=== PATIENT | male | born 1945 | race Caucasian/White ===

== ENCOUNTER 2020-12-17 12:13 | Emergency (ER) | payer MEDICARE, OTHER, SELFPAY ==
[2020-12-17] VITALS (24 sets, daily range): BP systolic 140–181; BP diastolic 65–120; PULSE 60–85; RESP 16–48; TEMP 36.6; O2SAT 97–100; BMI 21.2
--- NOTE | 2020-12-17 12:24 | DI.RAD.S_ITS ---
PROCEDURE: XR CHEST 1V INDICATIONS: chest pain TECHNIQUE: One view of the chest was acquired. COMPARISON: None. FINDINGS: Surgical changes and devices: None. Lungs and pleura: Lungs are clear. No pleural effusions or pneumothorax. Mediastinum: Mediastinal contours appear normal. Heart size is normal. Bones and chest wall: No suspicious bony lesions. Overlying soft tissues appear unremarkable. IMPRESSION: Normal for age, source of current chest pain symptoms is not seen. Dictated by: Franco Guzman M.D. on 12/17/2020 at 12:55 Approved by: Franco Guzman M.D. on 12/17/2020 at 12:55
[2020-12-17 13:21] LABS: Add Manual Diff / Slide Review NO; Basophils Absolute Auto 0 /uL (0-100); Basophils Percent Auto 0.3 % (0-2); Eosinophils Absolute Auto 0 /uL (0-450); Eosinophils Percent Auto 0.8 % (2-4); Hematocrit 42.8 % (41-53); Hemoglobin 14.1 g/dL (13.5-17.5); Lymphocytes Absolute Auto 700 /uL (1100-4500); Mean Corpuscular HGB Conc 33.1 % (30-36); Mean Corpuscular Volume 93.9 fL (80-100); Monocytes Absolute Auto 500 /uL (0-900); Monocytes Percent Auto 8.1 % (3-14); Neutrophils Absolute Auto 4500 /uL (1500-7000); Neutrophils Percent Auto 78.8 % (50-75); Platelet Count 183 X10^3/uL (150-400); Red Blood Cell Count 4.56 X10^6/uL (4.5-5.9); Red Cell Distribution Width 13.2 % (11.6-14.8); White Blood Cell Count 5.8 X10^3/uL (4.5-11.0)
[2020-12-17 13:29] LABS: Alanine Aminotransferase 18 IU/L (<50); Albumin 4.3 g/dL (3.5-5.0); Albumin Globulin Ratio 1.4 (1.0-2.8); Alkaline Phosphatase 72 U/L (38-126); Aspartate Aminotransferase 27 IU/L (17-59); BUN Creatinine Ratio 32.8 (6-22); Bilirubin Total 0.8 mg/dL (0.2-1.3); Blood Urea Nitrogen 21 mg/dL (9-20); Calcium 9.2 mg/dL (8.4-10.2); Carbon Dioxide 29 mmol/L (22-32); Chloride 104 mmol/L (98-107); Creatine Kinase 95 U/L (55-170); Estimated Glomerular Filt Rate > 60.0 mL/min (>60); Globulin 3.1 g/dL (1.7-4.1); Glucose 148 mg/dL (80-110); HEMOLYSIS < 15 (0-50); Lipase 206 U/L (23-300); Potassium 4.3 mmol/L (3.4-5.1); Sodium 138 mmol/L (137-145); Total Protein 7.4 g/dL (6.3-8.2)
[2020-12-17 14:10] LABS: Troponin I 0.137 ng/mL (0.01-0.034)
[2020-12-17] MEDS: ASPIRIN 81 MG CHEW TAB 324 MG (14:21)
--- NOTE | 2020-12-17 14:30 | ED.CHESTPAIN ---
HPI - Chest Pain General Chief Complaint: Chest Pain Stated Complaint: possible heart attack Time Seen by Provider: 12/17/20 14:13 Source: patient and family () History of Present Illness HPI narrative: This is a 75-year-old male who comes emergency department with complaint of discomfort in bilateral arms. Patient states this morning about 10:00 a.m. he had some she back and shoulder discomfort which is not unusual but then around 1045 started developed achy discomfort in bilateral lower upper extremities for about an hour and a half which then resolved. He states he feels fine now. He does not think he was diaphoretic but he felt a little warm. He denies any shortness of breath. No syncope. No nausea. No issues with bowel movements or urination. No swelling of extremities. Patient has a history of thyroid disease, GERD and takes simvastatin daily. No history of hypertension or diabetes. He had a disc trimmed on his back in the past but denies any other cardiac history. Or other surgical. No tobacco, 1 glass of wine daily. No illicit. Dr. Guzamn is his primary care. Patient does not have a tester operator helper. Related Data Home Medications Medication Instructions Recorded Confirmed aspirin 81 mg tablet 81 mg PO DAILY 12/17/20 12/17/20 levothyroxine 100 mcg tablet 100 mcg PO DAILY 12/17/20 12/17/20 Previous Rx's Medication Instructions Recorded omeprazole 40 mg capsule,delayed See Rx Instructions .ROUTE 02/26/20 release .COMPLEX #90 capsule simvastatin 20 mg tablet See Rx Instructions .ROUTE 02/26/20 .COMPLEX #90 tablet Allergies Allergy/AdvReac Type Severity Reaction Status Date / Time Penicillins [PENICILLINS] Allergy Unknown parents Verified 02/26/20 09:42 both allergic, has not ever had med Review of Systems Review of Systems ROS Unobtainable: All systems reviewed & are unremarkable except as noted in HPI and below Patient History Medical History Chicken pox (1950) GERD (gastroesophageal reflux disease) Hearing loss (1965) Hyperlipidemia (~2001) Hypothyroidism (2011) Lumbar disc herniation with radiculopathy Spinal injury (1965) Tinnitus Surgical History History of colonoscopy (11/07/09) Status post lumbar microdiscectomy (03/10/17) Family History (Updated 06/06/18 @ 11:46 by Meeta Huynh) Mother Hypertension Osteoporosis Father Melanoma Family/Other No problems noted. Social History Smoking Status: Never smoker Smoking Status: Never smoker Exam Narrative Exam Narrative: GENERAL: Alert and oriented x three, well nourished male in mild distress HEENT: Head normocephalic, atraumatic, EOMI, pupils reactive, face symmetric, moist mucous membranes NECK: Supple, full range of motion CARDIOVASCULAR: Regular rate and rhythm without murmurs, rubs or gallops. RESPIRATORY: Breath sounds equal bilaterally, no wheezes rales or rhonchi. ABDOMEN: Soft, nontender. Normoactive bowel sounds all 4 quadrants. No guarding or rebound, rigidity, no mass : No CVA tenderness EXTREMITIES: Normal range of motion, no clubbing or edema. Neurovascularly intact NEUROLOGICAL: Cranial nerves II through XII grossly intact. Moving all extremities SKIN: Warm, dry, no petechiae, no rashes or lesions. Initial Vital Signs Initial Vital Signs: Vital Signs Temperature 97.8 F 12/17/20 12:22 Pulse Rate 81 12/17/20 12:22 Respiratory Rate 16 12/17/20 12:22 Blood Pressure 180/86 H 12/17/20 12:22 Pulse Oximetry 97 12/17/20 12:22 Course Orders Ordered: ED Orders 12/17/20 12:24 XR chest 1V Stat EKG-12 Lead Stat 12/17/20 12:56 Complete Blood Count AUTO DIFF Stat Comprehensive Metabolic Panel Stat Lipase Stat Troponin & CK Cardiac Panel Stat 12/17/20 15:03 Troponin I Stat 12/17/20 15:14 PT [Prothrombin Time INR] Stat 12/17/20 15:17 Education, smoking cessation ONGOING 12/17/20 16:17 EC echo doppler complete Stat 12/17/20 16:36 COVID19 - ADMIT (ACTING SECTION CHIEF swab/PCR) Stat 12/17/20 22:00 PTT [Partial Thromboplastin Time] Stat Heparin Sodium/Dextrose (Heparin Drip) 25,000 unit in 500 mls @ 18.507 mls/hr IV CONT MARGARET; Protocol Last Admin: 12/17/20 15:44 Dose: 12 units/kg/hr, 18.507 mls/hr Documented by: ALICIA Morphine Sulfate (Morphine 2 Mg/Ml Inj) 2 mg IV Q5MIN PRN PRN Reason: Chest Pain Naloxone HCl (Naloxone 0.4 Mg/Ml Vial) 0.2 mg IV Q2MIN PRN PRN Reason: Opiate Reversal Nitroglycerin (Nitroglycerin 0.4 Mg Sl Tab) 0.4 mg SL [id number] PRN PRN Reason: chest pain Discontinued Medications Atorvastatin Calcium (Atorvastatin 20 Mg Tablet) 80 mg PO NOW ONE Stop: 12/17/20 16:18 Last Admin: 12/17/20 16:56 Dose: 80 mg Documented by: ALICIA Heparin Sodium (Porcine) (Heparin 5,000 Unit/Ml Vial) 4,000 unit IV NOW ONE Stop: 12/17/20 15:18 Last Admin: 12/17/20 15:43 Dose: 4,000 unit Documented by: ALICIA Reevaluation(s) Reevaluation #1: Patient has been asymptomatic even with rhythm changes. Discussed with patient current situation. Cardiology recommendations. Patient is aware we are searching for beds at any available facility at this time. They do not feel that he requires ED to ED transfer at this time he was asked update us if he develops any new symptoms. Consultations Consultation #1: Nathaniel with cardiology at [facility]. Plan to transfer when bed available. Patient she was originally contacted when patient was noted have and STEMI. Patient had rhythm changes and recontacted after rhythm changes. IAVR acute idioventricular rhythm. Slow VT. No additional changes at this time. We did review patient is aspirin, heparin drip and has received statin. She does not wish for any additional changes such as nitro, beta-jas for any other antiarrhythmics. She does ask for re-contacted patient developed chest pain/chest pain equivalent or new rhythm changes. Consultation #2: Dr. Hernandez cardiology with [facility], reviewed case. Discussed patient's case thus far today. He agrees appropriate to transfer patient. Asked that we speak with the hospitalist. Consultation #3: Dr. Buckner with hospitalist service at [facility]. Agrees to accept for transfer. No current bed availibility but will transfer when available. Vital Signs Vital signs: Vital Signs - 8 hr 12/17/20 13:21 12/17/20 13:30 12/17/20 13:35 Pulse Rate 66 60 61 Respiratory Rate 23 Blood Pressure 167/74 H Pulse Oximetry 99 99 98 12/17/20 14:00 12/17/20 14:30 12/17/20 15:00 Pulse Rate 62 63 67 Respiratory Rate 20 20 23 Blood Pressure 156/76 H 171/77 H 167/77 H Pulse Oximetry 99 100 100 12/17/20 15:30 12/17/20 15:51 12/17/20 16:00 Pulse Rate 63 67 65 Respiratory Rate 22 22 23 Blood Pressure 156/120 H 166/84 H 152/65 H Pulse Oximetry 99 99 100 12/17/20 16:30 12/17/20 16:31 12/17/20 17:00 Pulse Rate 65 65 62 Respiratory Rate 27 H 17 Blood Pressure 146/100 H 156/74 H Pulse Oximetry 100 100 99 12/17/20 17:30 12/17/20 18:00 12/17/20 18:30 Pulse Rate 64 75 69 Respiratory Rate 21 19 22 Blood Pressure 140/71 161/77 H 163/76 H Pulse Oximetry 100 98 98 12/17/20 19:00 12/17/20 19:30 Pulse Rate 67 69 Respiratory Rate 26 H 25 H Blood Pressure 153/74 H 153/77 H Pulse Oximetry 99 99 MDM - Chest Pain Lab Data Result diagrams: 12/17/20 12:56 12/17/20 12:56 Labs: Lab Results 12/17/20 12/17/20 12/17/20 Range/Units 12:56 12:56 15:03 WBC 5.8 (4.5-11.0) X10^3/uL RBC 4.56 (4.5-5.9) X10^6/uL Hgb 14.1 (13.5-17.5) g/dL Hct 42.8 (41-53) % MCV 93.9 (80-100) fL MCH 31.0 (26-34) PG MCHC 33.1 (30-36) % RDW 13.2 (11.6-14.8) % Plt Count 183 (150-400) X10^3/uL Neut % (Auto) 78.8 H (50-75) % Lymph % (Auto) 12.0 L (25-40) % [place] % (Auto) 8.1 (3-14) % Eos % (Auto) 0.8 L (2-4) % Baso % (Auto) 0.3 (0-2) % Neut # (Auto) 4500 (4633-5196) /uL Lymph # (Auto) 700 L (1924-9684) /uL [place] # (Auto) 500 (0-900) /uL Eos # (Auto) 0 (0-450) /uL Baso # (Auto) 0 (0-100) /uL PT (10.1-12.7) SECONDS INR (0.9-1.3) Sodium 138 (137-145) mmol/L Potassium 4.3 (3.4-5.1) mmol/L Chloride 104 (98-107) mmol/L Carbon Dioxide 29 (22-32) mmol/L BUN 21 H (9-20) mg/dL Creatinine 0.64 L (0.66-1.25) mg/dL Estimated GFR > 60.0 (>60) mL/min BUN/Creatinine Ratio 32.8 H (6-22) Glucose 148 H (80-110) mg/dL Calcium 9.2 (8.4-10.2) mg/dL Total Bilirubin 0.8 (0.2-1.3) mg/dL AST 27 (17-59) IU/L ALT 18 (<50) IU/L Alkaline Phosphatase 72 (38-126) U/L Total Creatine Kinase 95 (55-170) U/L CK-MB (CK-2) TNP CK-MB (CK-2) Rel Index TNP Troponin I 0.137 H* 0.778 H* (0.01-0.034) ng/mL Total Protein 7.4 (6.3-8.2) g/dL Albumin 4.3 (3.5-5.0) g/dL Globulin 3.1 (1.7-4.1) g/dL Albumin/Globulin Ratio 1.4 (1.0-2.8) Lipase 206 (23-300) U/L SARS-CoV-2 (PCR) (Negative) 12/17/20 12/17/20 Range/Units 15:14 16:36 WBC (4.5-11.0) X10^3/uL RBC (4.5-5.9) X10^6/uL Hgb (13.5-17.5) g/dL Hct (41-53) % MCV (80-100) fL MCH (26-34) PG MCHC (30-36) % RDW (11.6-14.8) % Plt Count (150-400) X10^3/uL Neut % (Auto) (50-75) % Lymph % (Auto) (25-40) % [place] % (Auto) (3-14) % Eos % (Auto) (2-4) % Baso % (Auto) (0-2) % Neut # (Auto) (2939-9429) /uL Lymph # (Auto) (0946-0564) /uL [place] # (Auto) (0-900) /uL Eos # (Auto) (0-450) /uL Baso # (Auto) (0-100) /uL PT 11.7 (10.1-12.7) SECONDS INR 1.1 (0.9-1.3) Sodium (137-145) mmol/L Potassium (3.4-5.1) mmol/L Chloride (98-107) mmol/L Carbon Dioxide (22-32) mmol/L BUN (9-20) mg/dL Creatinine (0.66-1.25) mg/dL Estimated GFR (>60) mL/min BUN/Creatinine Ratio (6-22) Glucose (80-110) mg/dL Calcium (8.4-10.2) mg/dL Total Bilirubin (0.2-1.3) mg/dL AST (17-59) IU/L ALT (<50) IU/L Alkaline Phosphatase (38-126) U/L Total Creatine Kinase (55-170) U/L CK-MB (CK-2) CK-MB (CK-2) Rel Index Troponin I (0.01-0.034) ng/mL Total Protein (6.3-8.2) g/dL Albumin (3.5-5.0) g/dL Globulin (1.7-4.1) g/dL Albumin/Globulin Ratio (1.0-2.8) Lipase (23-300) U/L SARS-CoV-2 (PCR) Negative (Negative) Imaging Data Chest x-ray: Radiologist's Impression: [address] [id number] ReportSigned Patient: Carlos Manuel Becker LMR#: [id number]: [id number]:[id number]/Sex: 75 / MDate of Service: 12/17/20Loc: EDAccession Number: [id number] Procedure: XR chest 1V Ordering Provider: Pamela Collier D.O. PROCEDURE: XR CHEST 1V INDICATIONS: chest pain TECHNIQUE: One view of the chest was acquired. COMPARISON: None. FINDINGS: Surgical changes and devices: None. Lungs and pleura: Lungs are clear. No pleural effusions or pneumothorax. Mediastinum: Mediastinal contours appear normal. Heart size is normal. Bones and chest wall: No suspicious bony lesions. Overlying soft tissues appear unremarkable. IMPRESSION: Normal for age, source of current chest pain symptoms is not seen. Dictated by: Franco Guzman M.D. on 12/17/2020 at 12:55 Approved by: Franco Guzman M.D. on 12/17/2020 at 12:55 ECG Data Interpretation: Sinus rhythm occasional PVC. Patient does not have any clear ST elevation. No depression appreciated. Rate of 65 P are 152 QRS 82 QTC of 418. EKG 2. Sinus rhythm, no ST segment changes. Q-wave that is 1 mm to 3 and AVF. Rate of 70, P are 172 QRS 82 and QTC of 429. Developed rhythm change, not able to be captured on the 30 kg but on 4th EKG patient has idioventricular rhythm, rate of 84, QRS of 156 and QTC of 484. Wide complex rhythm that is regular with a rate of 84. Critical Care Time Critical Care Time Critical Care Time: Yes Total Critical Care Time: 145 Attestation: The high probability of a clinically significant, sudden or life threatening deterioration of the [cardiac] system(s) required my full and direct attention, intervention and personal management. The aggregate critical care time was [] minutes. This time is in addition to time spent performing reported procedures but includes the following: [x] Data Review and interpretation [x] Patient assessment and monitoring of vital signs [x] Documentation [x] Medication orders and management Discharge Plan Departure Patient Disposition: [facility] Clinical Impression: Myocardial infarction Prescriptions: No Action omeprazole 40 mg capsule,delayed release(DR/EC) See Rx Instructions .ROUTE .COMPLEX Qty: 90 RF: 3 simvastatin 20 mg tablet See Rx Instructions .ROUTE .COMPLEX Qty: 90 RF: 3 levothyroxine 100 mcg Tablet 100 mcg PO DAILY RF: 0 aspirin 81 mg Tablet 81 mg PO DAILY RF: 0 Referrals: Bari Crandall MD [Primary Care Provider] -
[2020-12-17 15:36] LABS: Troponin I 0.778 ng/mL (0.01-0.034)
[2020-12-17] MEDS: HEPARIN 5,000 UNIT/ML VIAL 4000 UNIT IV (15:43)
[2020-12-17] MEDS: HEPARIN DRIP 25,000 UNIT/500 ML IV.SOLN 18.507 UNIT IV (15:44)
[2020-12-17 16:15] LABS: INR 1.1 (0.9-1.3); Prothrombin Time 11.7 SECONDS (10.1-12.7)
[2020-12-17] MEDS: ATORVASTATIN 20 MG TABLET 80 MG PO (16:56)
--- NOTE | 2020-12-17 17:41 | PC.NURSE ---
Pt is having 2-10 beat runs of wide complex V-Tach. Pt is completely asymptomatic. MD aware and at bedside. EKG ordered
[2020-12-17 17:54] LABS: COVID19 - ADMIT (NP swab/PCR) Negative (Negative)
== END 2020-12-17 22:00 | disposition short-term general hospital (02) ==
PROVIDERS: Emergency Provider Emergency Medicine; PCP Student in an Organized Health Care Education/Training Program
DX: I21.9 Acute myocardial infarction, unspecified (principal); R07.9 Chest pain, unspecified; Z20.822 Contact with and (suspected) exposure to COVID-19
CPT/HCPCS: 36415; 71045; 80053; 82550; 83690; 84484; 85025; 85610; 87635; 93005; 96365; 96366; 96375; 99284; 99291; 99292; C9803; J1644

== ENCOUNTER → 2021-02-09 15:14 | Outpatient (CLI) | payer MEDICARE, OTHER, SELFPAY ==
[2021-02-09 16:45] LABS: Add Manual Diff / Slide Review NO; Basophils Absolute Auto 0 /uL (0-100); Basophils Percent Auto 0.3 % (0-2); Eosinophils Absolute Auto 100 /uL (0-450); Eosinophils Percent Auto 1.9 % (2-4); Hematocrit 39.3 % (41-53); Hemoglobin 13.4 g/dL (13.5-17.5); Lymphocytes Absolute Auto 1000 /uL (1100-4500); Lymphocytes Percent Auto 20.7 % (25-40); Mean Corpuscular HGB Conc 34.2 % (30-36); Mean Corpuscular Hemoglobin 32.1 PG (26-34); Mean Corpuscular Volume 93.8 fL (80-100); Monocytes Absolute Auto 600 /uL (0-900); Monocytes Percent Auto 12.1 % (3-14); Neutrophils Absolute Auto 3200 /uL (1500-7000); Platelet Count 174 X10^3/uL (150-400); Red Blood Cell Count 4.19 X10^6/uL (4.5-5.9); Red Cell Distribution Width 12.9 % (11.6-14.8); White Blood Cell Count 4.9 X10^3/uL (4.5-11.0)
[2021-02-09 17:04] LABS: Alanine Aminotransferase 27 IU/L (<50); Albumin 4.2 g/dL (3.5-5.0); Albumin Globulin Ratio 1.5 (1.0-2.8); Alkaline Phosphatase 74 U/L (38-126); Aspartate Aminotransferase 33 IU/L (17-59); BUN Creatinine Ratio 26.6 (6-22); Blood Urea Nitrogen 21 mg/dL (9-20); Carbon Dioxide 30 mmol/L (22-32); Chloride 103 mmol/L (98-107); Cholesterol 114 mg/dL (140-199); Estimated Glomerular Filt Rate > 60.0 mL/min (>60); Globulin 2.8 g/dL (1.7-4.1); Glucose 105 mg/dL (80-110); HDL Cholesterol 45 mg/dL (40-60); HEMOLYSIS < 15 (0-50); LDL Cholesterol Calculated 53 mg/dL (<100); Sodium 138 mmol/L (137-145); Triglycerides 80 mg/dL (35-150)
[2021-02-09 17:20] LABS: Free T4, Direct Thyroxine 1.59 ng/dL (0.78-2.19)
[2021-02-09 17:34] LABS: Thyroid Stimulating Hormone 0.039 uIU/mL (0.47-4.68)
[2021-02-11 11:10] LABS: Lipoprotein (a) 10.3 nmol/L (<75.0)
== END ==
PROVIDERS: PCP Student in an Organized Health Care Education/Training Program; Referring Provider Internal Medicine; Visit Provider Internal Medicine
DX: E78.49 Other hyperlipidemia (principal); E03.8 Other specified hypothyroidism
CPT/HCPCS: 36415; 80053; 80061; 83695; 84439; 84443; 85025

== ENCOUNTER → 2021-05-13 09:56 | Outpatient (CLI) | payer MEDICARE, OTHER, SELFPAY ==
[2021-05-13 12:06] LABS: Free T4, Direct Thyroxine 0.85 ng/dL (0.78-2.19)
[2021-05-13 12:20] LABS: Thyroid Stimulating Hormone 3.24 uIU/mL (0.47-4.68)
== END ==
PROVIDERS: PCP Student in an Organized Health Care Education/Training Program; Referring Provider Internal Medicine; Visit Provider Internal Medicine
DX: E03.8 Other specified hypothyroidism (principal)
CPT/HCPCS: 36415; 84439; 84443

== ENCOUNTER → 2022-01-15 13:31 | Outpatient (CLI) | payer MEDICARE, OTHER, SELFPAY ==
[2022-01-15 14:08] LABS: Add Manual Diff / Slide Review NO; Basophils Absolute Auto 0 /uL (0-100); Basophils Percent Auto 0.3 % (0-2); Eosinophils Absolute Auto 100 /uL (0-450); Eosinophils Percent Auto 1.4 % (2-4); Hemoglobin 13.2 g/dL (13.5-17.5); Lymphocytes Absolute Auto 900 /uL (1100-4500); Lymphocytes Percent Auto 16.7 % (25-40); Mean Corpuscular HGB Conc 33.9 % (30-36); Mean Corpuscular Hemoglobin 31.7 PG (26-34); Mean Corpuscular Volume 93.6 fL (80-100); Monocytes Absolute Auto 600 /uL (0-900); Monocytes Percent Auto 10.6 % (3-14); Neutrophils Absolute Auto 3700 /uL (1500-7000); Platelet Count 177 X10^3/uL (150-400); Red Blood Cell Count 4.17 X10^6/uL (4.5-5.9); Red Cell Distribution Width 13.2 % (11.6-14.8); White Blood Cell Count 5.3 X10^3/uL (4.5-11.0)
[2022-01-15 14:31] LABS: Alanine Aminotransferase 19 IU/L (<50); Albumin 4.2 g/dL (3.5-5.0); Albumin Globulin Ratio 1.8 (1.0-2.8); Alkaline Phosphatase 57 U/L (38-126); Aspartate Aminotransferase 27 IU/L (17-59); BUN Creatinine Ratio 23.3 (6-22); Bilirubin Total 0.8 mg/dL (0.2-1.3); Blood Urea Nitrogen 20 mg/dL (9-20); Calcium 8.3 mg/dL (8.4-10.2); Carbon Dioxide 30 mmol/L (22-32); Chloride 102 mmol/L (98-107); Cholesterol 111 mg/dL (140-199); Estimated Glomerular Filt Rate > 60 mL/min (>60); Globulin 2.4 g/dL (1.7-4.1); Glucose 85 mg/dL (80-110); HDL Cholesterol 39 mg/dL (40-60); HEMOLYSIS < 15 (0-50); LDL Cholesterol Calculated 40 mg/dL (<100); Potassium 4.2 mmol/L (3.4-5.1); Sodium 136 mmol/L (137-145); Total Protein 6.6 g/dL (6.3-8.2); Triglycerides 159 mg/dL (35-150)
== END ==
PROVIDERS: PCP Student in an Organized Health Care Education/Training Program; Referring Provider Internal Medicine; Visit Provider Internal Medicine
DX: I21.4 Non-ST elevation (NSTEMI) myocardial infarction (principal)
CPT/HCPCS: 36415; 80053; 80061; 85025

== ENCOUNTER → 2022-02-16 14:48 | Outpatient (CLI) | payer MEDICARE, OTHER, SELFPAY ==
--- NOTE | 2022-02-16 | DI.ECHO.S_ITS ---
[facility] +---------+ : : [address] : [place] : : : : [id number] : : : : Phone: [phone] Echocardiogram Report + + :Name: KEVON HAYES Study Date: 02/16/2022 Height: 74 in : :[facility] ReadingLocation: Weight: 175 lb : : Gender: Male BSA: 2.1 m2 : :: 1945 Age: 76 yrs BP: 139/72 mmHg: :Reason For Study: NSTEMI : :Ordering Physician: OTONIEL, : :ELAYNE Performed By: Niharika Aguilera : :Referring: ELAYNE FREDERICK : + + Interpretation Summary Normal sinus rhythm. Normal LV size and wall thickness. Normal wall motion and left ventricular systolic function. Ejection fraction is 55-60% No significant valvular abnormalities. Normal chamber sizes. Compared to prior study LV is visibly more dynamic. Ejection fraction normalized. Focal wall motion abnormalities are no longer seen. Ejection fraction is up from 35-40% to 55-60% Procedure: A two-dimensional transthoracic echocardiogram with color flow and Doppler was performed. The study quality was technically adequate. Comparison is made with the echocardiogram of 12/18/2020. The patient was in sinus rhythm with heart rates between 58-68 bpm during the exam. Left Ventricle: The left ventricle is normal in size and wall thickness. The ejection fraction is estimated to be 55-60%. Right Ventricle: The right ventricle is normal in size and function. Atria: The left atrial size is normal. Right atrial size is normal. There is no Doppler evidence for an interatrial shunt. Mitral Valve: The mitral valve is normal in structure and function. There is mild mitral regurgitation. Aortic Valve: The aortic valve is trileaflet. The aortic valve opens well. There is no aortic valve stenosis. There is trace aortic regurgitation. Tricuspid Valve: The tricuspid valve is normal in structure and function. There is mild tricuspid regurgitation. The right ventricular systolic pressure is estimated to be at least 19 mmHg based on an estimated right atrial pressure of 3 mm Hg. Pulmonic Valve: The pulmonic valve is not well seen, but is grossly normal. There is mild pulmonic regurgitation. Great Vessels: The aortic root is normal size. The dimensions of the ascending aorta are normal. The IVC is of normal diameter and collapses greater than 50% with a sniff. This suggests a low right atrial pressure of 3 mm Hg. Pericardium/ Pleura There is no pericardial effusion. There is no pleural effusion. MMode/2D Measurements & Calculations LVIDd: 5.2 cm LVOT diam: 2.2 cm LVIDs: 3.5 cm Ao root diam: 3.4 cm FS: 33.2 % asc Aorta Diam: 3.4 cm EPSS: 0.77 cm Ao Arch Diam (Prox Trans): 2.6 cm IVSd: 0.82 cm LVPWd: 0.90 cm LV shetty. diameter/BSA (cm/m^2): 2.5 LV sys. diameter/BSA (cm/m^2): 1.7 LA A2 area: 22.3 cm2 RA long axis: 5.0 cm LA A4 area: 17.1 cm2 RA area: 18.5 cm2 LA length (vol): 4.7 cm RA vol: 58.0 ml LA vol: 68.5 ml RA : 28.3 ml/m2 LA vol index: 33.3 ml/m2 IVC diam: 1.8 cm RVD1 (basal): 3.7 cm RVD2 (mid): 2.9 cm TAPSE: 2.3 cm Doppler Measurements & Calculations Ao V2 max: 98.2 cm/sec LVOT Max Pete: 81.5 cm/sec Ao V2 mean: 68.2 cm/sec LV V1 max P.7 mmHg Ao max P.9 mmHg LV V1 VTI: 18.9 cm Ao mean P.1 mmHg KAVON(I,D): 3.1 cm2 Ao V2 VTI: 23.1 cm KAVON(V,D): 3.1 cm2 sev ratio: 0.82 KAVON indexed to BSA (cm^2/m^2): 1.5 MV E max pete: 74.6 cm/sec TR max pete: 202.2 cm/sec MV A max pete: 83.1 cm/sec TR max P.3 mmHg MV E/A: 0.90 PA V2 max: 89.8 cm/sec Med Peak E' Pete: 5.7 cm/sec PA V2 mean: 60.5 cm/sec E/E' med: 13.1 PA mean P.7 mmHg Lat Peak E' Pete: 7.6 cm/sec PA pr(Accel): 3.6 mmHg E/E' lat: 9.8 E/e' average: 11.4 MV dec time: 0.26 sec [facility]): 71.3 ml Electronically signed by: Elayne Frederick M.D. on [employer] Physician:02/16/2022 06:37 PM
== END ==
PROVIDERS: PCP Student in an Organized Health Care Education/Training Program; Referring Provider Internal Medicine; Visit Provider Internal Medicine
DX: I21.4 Non-ST elevation (NSTEMI) myocardial infarction (principal)
CPT/HCPCS: 93306

== ENCOUNTER → 2023-01-14 07:28 | Outpatient (CLI) | payer MEDICARE, OTHER, SELFPAY ==
[2023-01-14 08:40] LABS: Hematocrit 37.7 % (41-53); Hemoglobin 12.9 g/dL (13.5-17.5); Mean Corpuscular HGB Conc 34.3 % (30-36); Mean Corpuscular Hemoglobin 32.4 PG (26-34); Mean Corpuscular Volume 94.4 fL (80-100); Platelet Count 179 X10^3/uL (150-400); White Blood Cell Count 4.1 X10^3/uL (4.5-11.0)
[2023-01-14 09:04] LABS: Alanine Aminotransferase 24 IU/L (<50); Albumin Globulin Ratio 1.6 (1.0-2.8); Alkaline Phosphatase 65 U/L (38-126); Aspartate Aminotransferase 29 IU/L (17-59); BUN Creatinine Ratio 23.5 (6-22); Blood Urea Nitrogen 19 mg/dL (9-20); Calcium 8.6 mg/dL (8.4-10.2); Carbon Dioxide 30 mmol/L (22-32); Chloride 103 mmol/L (98-107); Cholesterol 119 mg/dL (140-199); Estimated Glomerular Filt Rate > 60 mL/min (>60); Globulin 2.5 g/dL (1.7-4.1); Glucose 108 mg/dL (80-110); HDL Cholesterol 45 mg/dL (40-60); HEMOLYSIS < 15 (0-50); LDL Cholesterol Calculated 56 mg/dL (<100); Potassium 4.5 mmol/L (3.4-5.1); Sodium 137 mmol/L (137-145); Total Protein 6.5 g/dL (6.3-8.2); Triglycerides 88 mg/dL (35-150)
[2023-01-14 09:12] LABS: Free T4, Direct Thyroxine 1.17 ng/dL (0.78-2.19)
[2023-01-14 09:26] LABS: Thyroid Stimulating Hormone 2.41 uIU/mL (0.47-4.68)
[2023-01-14 09:28] LABS: Prostate Specific Antigen 1.72 ng/mL (0.10-4.00)
== END ==
PROVIDERS: PCP Pediatrics; Referring Provider Internal Medicine; Visit Provider Internal Medicine
DX: I21.4 Non-ST elevation (NSTEMI) myocardial infarction (principal); R35.1 Nocturia; E03.8 Other specified hypothyroidism
CPT/HCPCS: 36415; 80053; 80061; 84153; 84439; 84443; 85027

== ENCOUNTER → 2023-12-20 07:33 | Outpatient (CLI) | payer MEDICARE, OTHER, SELFPAY ==
[2023-12-20 09:44] LABS: HEMOLYSIS < 15 (0-50); Iron 110 ug/dL (49-181)
[2023-12-20 09:55] LABS: Alanine Aminotransferase 23 IU/L (<50); Albumin Globulin Ratio 1.5 (1.0-2.8); Alkaline Phosphatase 69 U/L (38-126); Aspartate Aminotransferase 29 IU/L (17-59); BUN Creatinine Ratio 22.5 (6-22); Bilirubin Total 1.1 mg/dL (0.2-1.3); Blood Urea Nitrogen 20 mg/dL (9-20); Carbon Dioxide 29 mmol/L (22-32); Chloride 105 mmol/L (98-107); Cholesterol 113 mg/dL (140-199); Estimated Glomerular Filt Rate > 60 mL/min (>60); Globulin 2.7 g/dL (1.7-4.1); Glucose 113 mg/dL (80-110); HDL Cholesterol 45 mg/dL (40-60); HEMOLYSIS < 15 (0-50); LDL Cholesterol Calculated 51 mg/dL (<100); Potassium 4.7 mmol/L (3.4-5.1); Sodium 138 mmol/L (137-145); Total Protein 6.7 g/dL (6.3-8.2); Triglycerides 85 mg/dL (35-150)
[2023-12-20 09:56] LABS: Percent Iron Saturation 36 % (20-50); Total Iron Binding Capacity 302 ug/dL (261-462); Transferrin 229 mg/dL (206-381)
[2023-12-20 10:04] LABS: Free T4, Direct Thyroxine 1.07 ng/dL (0.78-2.19)
[2023-12-20 10:18] LABS: Thyroid Stimulating Hormone 4.12 uIU/mL (0.47-4.68)
[2023-12-20 10:35] LABS: Vitamin B12 839 pg/mL (239-931)
== END ==
LOC: LAB 07:35
PROVIDERS: PCP Family Medicine; Referring Provider Internal Medicine; Visit Provider Internal Medicine
DX: I21.4 Non-ST elevation (NSTEMI) myocardial infarction (principal); E03.9 Hypothyroidism, unspecified; E78.2 Mixed hyperlipidemia
CPT/HCPCS: 36415; 80053; 80061; 82607; 83540; 83550; 84439; 84443

== ENCOUNTER → 2025-01-14 08:32 | Outpatient (CLI) | payer MEDICARE, OTHER, SELFPAY ==
[2025-01-14 09:07] LABS: Add Manual Diff / Slide Review NO; Hematocrit 38.9 % (41-53); Hemoglobin 13.1 g/dL (13.5-17.5); Lymphocytes Absolute Auto 900 /uL (1100-4500); Mean Corpuscular HGB Conc 33.7 % (30-36); Mean Corpuscular Hemoglobin 31.8 PG (26-34); Mean Corpuscular Volume 94.5 fL (80-100); Platelet Count 180 X10^3/uL (150-400)
[2025-01-14 09:28] LABS: HEMOLYSIS < 15 (0-50); Iron 118 ug/dL (49-181)
[2025-01-14 09:29] LABS: Alanine Aminotransferase 20 IU/L (<50); Albumin 4.3 g/dL (3.5-5.0); Albumin Globulin Ratio 1.7 (1.0-2.8); Alkaline Phosphatase 75 U/L (38-126); Blood Urea Nitrogen 22 mg/dL (9-20); Calcium 9.1 mg/dL (8.4-10.2); Carbon Dioxide 27 mmol/L (22-32); Chloride 104 mmol/L (98-107); Cholesterol 124 mg/dL (140-199); Estimated Glomerular Filt Rate > 60 mL/min (>60); Globulin 2.6 g/dL (1.7-4.1); Glucose 119 mg/dL (70-99); HDL Cholesterol 46 mg/dL (40-60); HEMOLYSIS < 15 (0-50); Potassium 4.6 mmol/L (3.4-5.1); Sodium 138 mmol/L (137-145); Total Protein 6.9 g/dL (6.3-8.2); Triglycerides 88 mg/dL (35-150)
[2025-01-14 09:41] LABS: Percent Iron Saturation 39 % (20-50); Total Iron Binding Capacity 306 ug/dL (261-462); Transferrin 246 mg/dL (206-381)
[2025-01-14 09:47] LABS: Free T4, Direct Thyroxine 1.09 ng/dL (0.78-2.19)
[2025-01-14 10:00] LABS: Thyroid Stimulating Hormone 4.19 uIU/mL (0.47-4.68)
[2025-01-14 10:19] LABS: Vitamin B12 847 pg/mL (239-931)
== END ==
PROVIDERS: PCP Family Medicine; Referring Provider Family Medicine; Visit Provider Family Medicine
DX: Z12.5 Encounter for screening for malignant neoplasm of prostate (principal); D64.9 Anemia, unspecified; I25.2 Old myocardial infarction; E03.9 Hypothyroidism, unspecified; M54.16 Radiculopathy, lumbar region; E78.2 Mixed hyperlipidemia
CPT/HCPCS: 36415; 80053; 80061; 82607; 83540; 83550; 84439; 84443; 85025; G0103

== ENCOUNTER → 2025-03-12 14:05 | Outpatient (CLI) | payer MEDICARE, OTHER, SELFPAY ==
--- NOTE | 2025-03-12 14:07 | DI.ECHO.S_ITS ---
[facility] +---------+ [facility] : : [address] : : [place] : : [id number] : : Phone: [phone] Echocardiogram Report + + :Name: KEVON HAYES Study Date: 03/12/2025 Height: 75 in : :[facility] ReadingLocation: Weight: 180 lb : : Gender: Male BSA: 2.1 m2 : :: 1945 Age: 79 yrs BP: 133/74 mmHg: :Reason For Study: NSTEMI : :Ordering Physician: OTONIEL, : :ELAYNE Performed By: Viktor Guillen : :Referring: ELAYNE FREDERICK : + + Interpretation Summary Normal sinus rhythm. Normal LV size, wall thickness, wall motion and LV systolic function. EF is 50-55%. Normal chamber sizes. No valve abnormalities. No prior echo available for comparison. Procedure: A two-dimensional transthoracic echocardiogram with color flow and Doppler was performed. The study quality was technically good. Comparison is made with the echocardiogram of 02/16/2022. The patient was in normal sinus rhythm during the exam. Left Ventricle: The left ventricle is normal in size. There is normal left ventricular wall thickness. There is no ventricular septal defect visualized. The ejection fraction is estimated to be 50-55%. There are no focal wall motion abnormalities. Diastolic parameters suggest a relaxation abnormality of the left ventricle, consistent with probable normal filling pressures. Right Ventricle: The right ventricle is normal in size and function. Atria: The left atrial size is normal. Right atrial size is normal. There is no Doppler evidence for an interatrial shunt. Mitral Valve: The mitral valve leaflets appear mildly thickened. There is mild mitral regurgitation. Aortic Valve: The aortic valve is trileaflet. The aortic valve opens well. No aortic regurgitation is present. Tricuspid Valve: The tricuspid valve leaflets are thin and pliable. There is a trace or physiologic amount of tricuspid regurgitation. Pulmonic Valve: The pulmonic valve is not well seen, but is grossly normal. There is trace pulmonic regurgitation. Great Vessels: The aortic root is normal size. The dimensions of the ascending aorta are normal. The pulmonary artery is normal size. The IVC is of normal diameter and collapses greater than 50% with a sniff. This suggests a low right atrial pressure of 3 mm Hg. Pericardium/ Pleura There is no pericardial effusion. There is no pleural effusion. MMode/2D Measurements & Calculations LVIDd: 5.3 cm LVOT diam: 2.5 cm LVIDs: 3.7 cm Ao root diam: 3.4 cm FS: 29.9 % asc Aorta Diam: 3.3 cm EPSS: 0.58 cm IVSd: 0.91 cm LVPWd: 1.0 cm LV shetty. diameter/BSA (cm/m^2): 2.5 LV sys. diameter/BSA (cm/m^2): 1.8 LA A2 area: 24.7 cm2 RA long axis: 5.0 cm LA A4 area: 15.5 cm2 RA area: 17.1 cm2 LA length (vol): 5.0 cm RA vol: 50.2 ml LA vol: 65.5 ml RA : 23.9 ml/m2 LA vol index: 31.2 ml/m2 IVC diam: 1.7 cm RVD1 (basal): 3.5 cm RVD2 (mid): 2.7 cm TAPSE: 2.9 cm Doppler Measurements & Calculations Ao V2 max: 111.1 cm/sec LVOT Max Pete: 107.9 cm/sec Ao V2 mean: 76.0 cm/sec LV V1 max P.7 mmHg Ao max P.9 mmHg LV V1 VTI: 24.6 cm Ao mean P.6 mmHg KAVON(I,D): 5.1 cm2 Ao V2 VTI: 24.3 cm KAVON(V,D): 4.9 cm2 sev ratio: 1.0 KAVON indexed to BSA (cm^2/m^2): 2.4 MV E max pete: 74.9 cm/sec PA V2 max: 110.4 cm/sec MV A max pete: 89.7 cm/sec PA V2 mean: 66.6 cm/sec MV E/A: 0.83 PA mean P.1 mmHg Med Peak E' Pete: 5.6 cm/sec PA pr(Accel): 43.0 mmHg E/E' med: 13.5 Lat Peak E' Pete: 9.1 cm/sec E/E' lat: 8.3 E/e' average: 10.9 MV dec time: 0.17 sec SV(LVOT): 123.0 ml Electronically signed by: Elayne Frederikc M.D. on Reading Physician:03/14/2025 03:46 AM
== END ==
LOC: ECHO 14:06
PROVIDERS: PCP Family Medicine; Referring Provider Family Medicine; Visit Provider Internal Medicine
DX: I21.4 Non-ST elevation (NSTEMI) myocardial infarction (principal); I34.0 Nonrheumatic mitral (valve) insufficiency
CPT/HCPCS: 93306

== ENCOUNTER 2025-03-15 07:50 | Day surgery (SDC) | payer MEDICARE, OTHER, SELFPAY ==
[2025-03-08 13:21] VITALS: BMI 22.7
--- NOTE | 2025-03-15 06:52 | P.HP_ITS ---
History of Present Illness History of Present Illness Date Patient Seen: 03/15/25 Time Patient Seen: 06:52 Chief complaint: [facility] Narrative: Patient presents for [facility] this morning. [facility] Medical History (Updated 03/08/25 @ 13:35 by Mecca Fraser RN) CAD (coronary artery disease) Non-ST elevated myocardial infarction (non-STEMI) (11/2020) Right inguinal hernia Anemia Spinal injury (1965) Hyperlipidemia (~2001) Hypothyroidism (2011) GERD (gastroesophageal reflux disease) Hearing loss (1965) Tinnitus Chicken pox (1949) Lumbar disc herniation with radiculopathy Surgical History Status post lumbar microdiscectomy (03/10/17) History of colonoscopy (11/07/09) Family History Mother Hypertension Osteoporosis Father Melanoma Family/Other No problems noted. Social History household members: spouse alcohol intake: current Meds Home Medications and Allergies Home Medications ?Medication ?Instructions ?Recorded ?Confirmed ?Type aspirin 81 mg tablet 81 mg PO DAILY 12/17/2001/19 History atorvastatin 40 mg tablet 40 mg PO BEDTIME 12/25/20 History omeprazole 20 mg capsule,delayed See Rx Instructions . Route 03/20/24 02/06/25 Rx release .COMPLEX #90 caps levothyroxine 100 mcg tablet 100 mcg PO DAILY #90 tabs 12/25/24 02/06/25 Rx lisinopril 10 mg tablet 10 mg PO DAILY #90 tabs 0702/1102/06/25 Rx metoprolol succinate 25 mg 12.5 mg (1/2 x 25 mg) PO DA GE #45 12/25/24 02/06/25 Rx tablet,extended release 24 hr tabs Allergies Allergy/AdvReac Type Severity Reaction Status Date / Time Penicillins (PENICILLINS) Allergy Unknown parents Verified 02/06/25 15:49 both allergic, has not ever had med Exam Narrative Exam Narrative: Const General: healthy appearing, comfortable and no acute distress HENMT Ears: hearing grossly normal bilaterally Eyes Visual Toney: normal visual toney by confrontation Conjunctivae: conjunctivae normal Sclera: sclerae normal EOM: EOM intact bilaterally Resp Effort & Inspection: normal respiratory effort and able to speak in complete sentences Cardio Rate: regular rate GI Palpation: soft (nontender) Other: Right inguinal hernia on exam, reducible; Left side palpably strong and intact Extrem Other: without pitting edema Assessment & Plan Assessment and plan (1) Right inguinal hernia: Status: Acute Plan Plan laparoscopic right inguinal hernia repair with mesh TEP no tack technique. The risks, benefits and options regarding the procedure were explained to the patient in detail. Risk discussion included but not limited to: bleeding, infection, recurrence, bruising, urinary retention. The patient was encouraged to ask questions and they were answered to their satisfaction. The patient understands and is agreeable to proceed. Time-Based Coding :: [TOTAL MINUTES] spent with patient and on the chart (including review of chart, obtaining history, exam, reviewing outside data, placing orders, documenting exam and treatment plan, and counseling patient) on [DATE]. PROFEE Fender Finisher Document charge(s): Yes Charge Codes Inpatient/observation care including admit and discharge same day: [id number]
[2025-03-15 08:38] VITALS: BP 147/54; PULSE 70; RESP 16; TEMP 36.2; O2SAT 100; BMI 22.7
[2025-03-15] MEDS: LACTATED RINGERS 1,000 ML 42 ML IV ×2 (08:50→09:52)
--- NOTE | 2025-03-15 09:32 | SUR.OPER ---
Supine on padded OR bed, head on pillow, pink pad positioner under torso, arms padded and tucked at sides, legs uncrossed, safety belt at thigh, tape over blanket over lower legs, purple strap across chest.
[2025-03-15 10:15] VITALS: BP 126/60; PULSE 63; RESP 15; TEMP 36.5; O2SAT 99
[2025-03-15 10:22] VITALS: BP 118/60; PULSE 69; RESP 15; TEMP 36.3; O2SAT 98
--- NOTE | 2025-03-15 10:22 | P.OP_ITS ---
Operative Date/Time/Diagnoses Date of procedure: 03/15/25 Time of procedure: 10:23 Pre-op diagnosis: Right inguinal hernia Post-op diagnosis: same (Direct right inguinal hernia) Procedure & Clinicians Procedure: Laparoscopic right inguinal hernia repair with mesh (TEP) Same procedure(s) as scheduled: Yes Indications: 79yo M with symptomatic RIH Surgeon: John Pearson Assisted?: No Anesthesia Type: General Operative Notes Findings: Direct right inguinal hernia Closure Type: primary Specimen(s): none sent Applied: none Estimated Blood Loss (mL): 10 Blood products transfused: none Procedure in detail: After informed consent and satisfactory general endotracheal anesthesia, the groins were shaved, prepped and draped in the usual sterile manner.? The patient received appropriate preoperative antibiotics and DVT prophylaxis.? Surgical time-out was performed with all team members in agreement.? The correct side was marked in the preoperative holding area.? The preperitoneal space was entered via an infraumbilical incision.? An 0 Vicryl [id number] suture was placed on the anterior rectus sheath to the right lateral of midline.? The rectus muscle was retracted laterally and the preperitoneal space was dissected with a blunt 10 mm instrument.? The 10 mm trocar was inserted and the preperitoneal space was insufflated to a pressure of 12 mmHg with carbon dioxide gas.? A small peritoneal opening was identified and later oversewn successfully using a 3-O V- loc PDS suture. The preperitoneal dissection allowed direct visual placement of two 5 mm trocars in the suprapubic midline.? The patient was placed in [place] position.? We further dissected the preperitoneal space including the femoral, direct and indirect spaces.? We dissected out lateral and an ilioinguinal nerve block was performed under direct vision by injecting 10 cc of 0.5% Marcaine with epinephrine into the transversus muscle under direct vision 2 fingerbreadths medial to the anterior superior iliac spine.? A total of 30 cc of 0.5% Marcaine with epinephrine was used.? The remainder was injected into the musculature at the end of the procedure for postoperative analgesia.? Once the preperitoneal space was dissected free we noticed that there was no indirect or femoral defects.? The peritoneum was dissected proximally off of the cord structures to allow room for the mesh.? The patient was noted to have a direct hernia defect.? The redundant transversalis fascia was pulled through an 0 PDS endoloop, twisted and then ligated to minimize the risk for postoperative seroma formation.? A large Bard 3D Duramax mesh was selected and inserted into the preperitoneal space and unrolled until it was in perfect position and noted to lay in a flat position without kinking or wrinkling of the mesh.? The mesh covered all 3 potential hernia defects widely.? Hemostasis was excellent throughout.? I held the lower border of the mesh with the grasper as we released the carbon dioxide and the peritoneum was noted to relax in a very pleasing manner against the mesh holding it in place.? No tacking or fixation was required The pneumoperitoneum was released, the trocars were remove and there was no bleeding noted at the trocar sites.? The 0 Vicryl [id number] suture was tied on the umbilical fascia with no palpable fascial defects.? The skin incisions were closed using 4-0 Monocryl in a subcuticular manner.? Dermabond glue was applied as a final dressing.? The instrument, sponge and needle counts were all correct x2.? The patient tolerated the procedure well and was extubated in the operating room and transported to the recovery area in stable condition. Complications: none Post-operative Condition: stable Disposition: PACU Plan for aftercare: PACU then home
[2025-03-15 10:27] VITALS: BP 130/73; PULSE 64; RESP 15; TEMP 36.2; O2SAT 98
[2025-03-15 11:00] VITALS: BP 138/80; PULSE 74; RESP 16; TEMP 36.4; O2SAT 98
== END 2025-03-15 11:00 | disposition home or self-care (01) ==
PROVIDERS: PCP Family Medicine; Referring Provider Family Medicine; Visit Provider Surgery
PROC: 0YQ54ZZ Repair Right Inguinal Region, Percutaneous Endoscopic Approach (ICD-10-PCS; CPT 49650; principal; 2025-03-15 09:15)
DX: K40.90 Unilateral inguinal hernia, without obstruction or gangrene, not specified as recurrent (principal)
CPT/HCPCS: 49650; C1781; J0689; J1100; J1171; J2405; J2704; J3010; J3490